=== PATIENT | male | born 1960 | race Caucasian/White ===

== ENCOUNTER 2023-10-17 01:27 | Inpatient (IN) | payer BC, SELFPAY ==
[2023-10-16 23:09] VITALS: BP 153/75
[2023-10-16 23:27] VITALS: BP 194/93
[2023-10-16 23:30] VITALS: BP 183/93
[2023-10-16 23:33] LABS: % Basophils 0.7 % (0-2); % Immature Granulocytes 0.8 % (0-0.5); % Lymphocytes 29.3 % (20.5-51.1); % Neutrophils 55.2 % (42.2-75.2); Absolute Basophils 0.1 10^3/uL (0-0.2); Absolute Eosinophils 0.2 10^3/uL (0-0.7); Absolute Immature Granulocytes 0.1 10^3/uL (0-0.05); Absolute Lymphocytes 3.5 10^3/uL (1.2-3.4); Absolute Monocytes 1.4 10^3/uL (0.1-0.6); Absolute Neutrophils 6.5 10^3/uL (1.4-6.5); Hematocrit 47.5 % (39.0-52.0); Hemoglobin 16.7 g/dL (13.0-18.0); Mean Corp Hgb Conc. 35.2 g/dL (33.0-37.0); Mean Corpuscular Hgb 32.3 pg (27.0-31.0); Mean Corpuscular Volume 91.9 fL (80.0-94.0); Mean Platelet Volume 9.4 fL (7.4-10.4); Nucleated Red Blood Cells % 0 % (-); Platelet Count 281 10^3/uL (130-400); Red Blood Cell Count 5.17 10^6/uL (4.70-6.10); Red Cell Dist. Width 12.5 % (11.5-14.5); White Blood Cell Count 11.8 10^3/uL (4.8-10.8)
--- NOTE | 2023-10-16 23:33 | ED.GENMED ---
History of Present Illness
General
Chief Complaint: Change Level of Consciousness
Source: family and ambulance crew
Time Seen by Provider: 10/16/23 23:09
History of Present Illness
History of Present Illness:
63-year-old male brought to the emergency room ambulance after becoming unresponsive at a [facility]. Patient had been consuming alcohol at the libertarian but at 9 PM he and his conversed and she felt like he seemed mildly intoxicated but not in a
concerning way. An hour later was brought to her attention that the patient had become essentially unresponsive. He had become rapidly confused, unsteady on his feet. He did have a mild fall reportedly and has an abrasion to the nose. When
paramedics arrived they found the patient sitting in the chair and he was completely unresponsive to stimulus. His Accu-Chek was normal. Patient has a history of coronary artery disease for which she had 5 vessel bypass at [facility]. He
also had right lower extremity arterial stent. However patient takes no medications.
Phy Exam
Physical Exam
Physical Exam:
General: Obtunded
Vitals: Mildly hypothermic on rectal temperature
Head: Abrasion to the bridge of the nose
Eyes: Pupils equal, EOMI
Throat: Airway intact, no exudates
Neck: Trachea midline
Chest: Sternotomy scar noted
Lungs: Clear and equal b/l
Heart: Regular rate, no murmurs
Abd: Soft, Nontender, No pulsatile mass
Neuro: Patient does not localize to painful stimulus. He intermittently appears to gag but aside from that makes no involuntary movements. He does not posture.
Skin: Warm, dry, no rash
Extremities: pulses equal b/l, no edema
Course
Orders/Labs/Results
Orders:
Orders
10/16/23 23:17
Alcohol Urgent
B-Hydroxybutyrate Urgent
Comment: ADD ON
Complete Blood Count/With Diff Urgent
Comprehensive Metabolic Panel Urgent
Triglycerides Urgent
Comment: ADDED
10/16/23 23:23
CR Chest Portable - 1 View Stat
Comment:
Reason For Exam: post intubation
Reason Study Needs to be Portable: Patient Unstable
10/16/23 23:29
Propofol 1,000,000 Mcg/100 ml [Diprivan] 1,000,000 mcg in 100 ml .ROUTE .STK-MED
10/16/23 23:30
0.9% Sodium Chloride 500 ml [Nss] 500 ml IV BOLUS
FentaNYL 1,000 MCG/100 ML [Sublimaze] 1,000 mcg in 100 ml IV NOW
Indication:: Light Sedation
Begin Infusion:: Now
Goal:: pain score </= 1, CPOT 0-2
Maximum dose in mcg/hr:: 300
Initial Dose in mcg/hr:: 100.0
Titration Instructions:: Titrate every 30 minutes if patient exhibits signs of pain or discomfort
Titration Instructions:: (pain score >/= 2, CPOT >/= 3).
Titration Instructions:: Administer bolus dose and increase infusion by 25 mcg/hr.
Taper Instructions:: If pain score at goal for 4 consecutive hours (pain score </= 1, CPOT 0-2)
Taper Instructions:: decrease infusion by 50 mcg/hr every 2 hours.
Taper Instructions:: When dose </= 50 mcg/hr may turn infusion off and consider PRN
Taper Instructions:: intermittent bolus doses only.
Over-sedation Instructions:: If CPOT 0-2 (goal) and RASS -3 to -5 (below goal) decrease sedative by 50%
Over-sedation Instructions:: first. If pain score remains at goal and RASS remains below goal in 1 hour,
Over-sedation Instructions:: decrease opioid infusion by 50%.
Notify provider:: immediately if pt exhibits: chest wall rigidity, hemodynamic instability,
Notify provider:: agitation/pain despite maximum dosing, pain when RASS below goal.
Additional Instructions:: Patient MUST be mechanically ventilated.
Fentanyl Citrate/Pf [Sublimaze] 100 mcg IV NOW STA
Fentanyl Citrate/Pf [Sublimaze] 50 mcg IV [id number] PRN
10/16/23 23:32
ABG [Arterial Blood Gas] Urgent
%Oxygen/Room Air: 40
10/17/23 00:00
CT Head W/o Iv Contrast Urgent
Reason For Exam: altered mental status
Propofol 1,000,000 Mcg/100 ml [Diprivan] 1,000,000 mcg in 100 ml IV NOW
Indication:: Light Sedation
Begin Infusion:: Now
Goal:: RASS 0 to -2
Maximum dose in mcg/kg/min:: 50
Initial dose based on RASS:: Yes
If RASS is:: +1 or pt hemodynamically unstable (SBP < 90mmHg), initiate at 10 mcg/kg/min
If RASS is:: +2, initiate at 20 mcg/kg/min
If RASS is:: greater than or equal to +3, initiate at 30 mcg/kg/min
Titration Instructions:: Titrate by 5-10 mcg/kg/min every 5 minutes until RASS 0 to -2 achieved.
Taper Instructions:: If RASS is at or below goal for 4 consecutive hours decrease infusion by
Taper Instructions:: 5-10 mcg/kg/min every 2 hours to off.
Over-sedation Instructions:: If CPOT 0-2 (at goal) AND RASS -3 to -5 (below goal) decrease sedative by
Over-sedation Instructions:: 50% first. If pain score remains at goal and RASS remains below goal in
Over-sedation Instructions:: 1 hour, decrease opioid infusion by 50%.
Notify provider:: immediately if patient exhibits signs/symptoms of propofol-related
Notify provider:: infusion syndrome.
Additional Instructions:: Patient MUST be mechanically ventilated and MUST receive analgesia.
Propofol [Diprivan] 50 mg IV NOW STA
10/17/23 00:01
ASA Classification Routine
10/17/23 00:18
Propofol [Diprivan] 50 mg IV NOW STA
10/17/23 00:30
Electrocardiogram (*1) Urgent
Reason for Study: Other
Other Reason for Exam: CIMS
10/17/23 00:31
EKG- Treatment ONCE
10/17/23 00:43
Urine Drug Abuse Screen Urgent
Date Specimen was Collected: 10/17/23
Time Specimen was Collected: 00:42
10/17/23 00:54
Add On- LAB Urgent
Tests Added?: beta hydroxybuterate
10/17/23 00:56
Admit/Transfer Patient As Directed
Co-Sign Provider:
Level of Care: Inpatient admission
Assign to:: ICU
Physician / Group: Matt
Diagnosis: Acute TME, Hypothermia, Anion Gap Metabolic Acidosis
Reason for Hospitalization: Acute TME, Hypothermia, Anion Gap Metabolic Acidosis
Expected length of stay greater than two midnights?: Yes
ELOS- Estimated Length of Stay in days: 3
I certify the patient meets the requirements for IP care: Yes
PRN Pain Medication Management As Directed
May give lesser potent ordered pain med per pt: Yes
preference::
Protocol:: Medication orders for pain may be administered in a
manner that supports deferring to patient preference
when the pt is:
- Requesting an ordered lesser potent pain medication.
Least to most potent pain medications are defined
as: acetaminophen < NSAID < tramadol < opioids
(morphine, oxycodone, hydromorphone).
- Requesting a lesser dose of the same medication IF
ORDERED.
- Requesting a less intrusive route of administration
if both routes are prescribed by the provider (PO <
IV).
10/17/23 00:57
Code Status As Directed
Resuscitation Status: Full Code
10/17/23 01:02
Thiamine Injection 100 mg IV NOW STA
10/17/23 01:17
Propofol 1,000,000 Mcg/100 ml [Diprivan] 1,000,000 mcg in 100 ml IV NOW
Indication:: Light Sedation
Begin Infusion:: Now
Goal:: RASS 0 to -2
Maximum dose in mcg/kg/min:: 50
Initial dose based on RASS:: Yes
If RASS is:: +1 or pt hemodynamically unstable (SBP < 90mmHg), initiate at 10 mcg/kg/min
If RASS is:: +2, initiate at 20 mcg/kg/min
If RASS is:: greater than or equal to +3, initiate at 30 mcg/kg/min
Titration Instructions:: Titrate by 5-10 mcg/kg/min every 5 minutes until RASS 0 to -2 achieved.
Taper Instructions:: If RASS is at or below goal for 4 consecutive hours decrease infusion by
Taper Instructions:: 5-10 mcg/kg/min every 2 hours to off.
Over-sedation Instructions:: If CPOT 0-2 (at goal) AND RASS -3 to -5 (below goal) decrease sedative by
Over-sedation Instructions:: 50% first. If pain score remains at goal and RASS remains below goal in
Over-sedation Instructions:: 1 hour, decrease opioid infusion by 50%.
Notify provider:: immediately if patient exhibits signs/symptoms of propofol-related
Notify provider:: infusion syndrome.
Additional Instructions:: Patient MUST be mechanically ventilated and MUST receive analgesia.
10/17/23 01:18
Propofol [Diprivan] 50 mg IV NOW STA
10/17/23 02:05
Troponin I Q6H
0.9% Sodium Chloride [Nss (Preservative Free)] See Protocol IV PRN PRN
Dextrose 5%/0.9%Sodchl 1000 ml [D5/0.9% Sodium Chloride] 1,000 ml IV 125 mls/hr
FOLic ACID [Folvite] 1 mg 0.9% Sodium Chloride 50 ml [Nss] 50 ml IV DAILYPRN
FentaNYL 1,000 MCG/100 ML [Sublimaze] 1,000 mcg in 100 ml IV PER PROTOCOL
Indication:: Light Sedation
Begin Infusion:: Other
Begin infusion when:: patient requires 3 or more bolus doses in 2 consecutive hours
Goal:: pain score </= 1, CPOT 0-2, RASS 0 to -2
Maximum dose in mcg/hr:: 300
Continue currently infusing dose and titrate:: Yes
Titration Instructions:: Titrate every 30 minutes if patient exhibits signs of pain or discomfort
Titration Instructions:: (pain score >/= 2, CPOT>/= 3).
Titration Instructions:: Administer bolus dose and increase infusion by 25 mcg/hr.
Taper Instructions:: If pain score at goal for 4 consecutive hours (pain score </= 1, CPOT 0-2)
Taper Instructions:: decrease infusion by 50 mcg/hr every 2 hours.
Taper Instructions:: When dose </= 50 mcg/hr may turn infusion off and consider PRN
Taper Instructions:: intermittent bolus doses only.
Over-sedation Instructions:: If CPOT 0-2 (goal) and RASS -3 to -5 (below goal) decrease sedative by 50%
Over-sedation Instructions:: first. If pain score remains at goal and RASS remains below goal in 1 hour,
Over-sedation Instructions:: decrease opioid infusion by 50%.
Notify provider:: immediately if pt exhibits: chest wall rigidity, hemodynamic instability,
Notify provider:: agitation/pain despite maximum dosing, pain when RASS -3 to -5 (below goal)
Additional Instructions:: When starting infusion, administer bolus dose per PRN order first.
Additional Instructions:: Patient MUST be mechanically ventilated.
Fentanyl Citrate/Pf [Sublimaze] 50 mcg IV [id number] PRN
Lorazepam [Ativan] 1 mg IV Q1HPRN PRN
Lorazepam [Ativan] 1 mg PO Q2HPRN PRN
Lorazepam [Ativan] 2 mg IV Q1HPRN PRN
Propofol 1,000,000 Mcg/100 ml [Diprivan] 1,000,000 mcg in 100 ml IV PER PROTOCOL
Indication:: Light Sedation
Begin Infusion:: Now
Goal:: RASS 0 to -2
Maximum dose in mcg/kg/min:: 50
Continue currently infusion dose and titrate:: Yes
Titration Instructions:: Titrate by 5-10 mcg/kg/min every 5 minutes until RASS 0 to -2 achieved.
Taper Instructions:: If RASS is at or below goal for 4 consecutive hours decrease infusion by
Taper Instructions:: 5-10 mcg/kg/min every 2 hours to off.
Over-sedation Instructions:: If CPOT 0-2 (at goal) AND RASS -3 to -5 (below goal) decrease sedative by
Over-sedation Instructions:: 50% first. If pain score remains at goal and RASS remains below goal in
Over-sedation Instructions:: 1 hour, decrease opioid infusion by 50%.
Notify provider:: immediately if patient exhibits signs/symptoms of propofol-related
Notify provider:: infusion syndrome.
Additional Instructions:: Patient MUST be mechanically ventilated and MUST recieve analgesia
10/17/23 02:05
Case Management Consult Once
Case Management Consult: Other
Comment: Substance abuse counseling
Consult Notification Routine
Specialty to Notify: Management Information Systems Director
DIETARY CONSULT Routine
Reason for Consult: Nutrition support, possible refeeding guidelines
Management Information Systems Director Consult Routine
Consulting Provider: Rajat Posada
Was physician already notified: No
Reason for consult: Acute TME, Hypothermia, Anion Gap Metabolic Acidosis
TSH Reflex To Free T4 Routine
Triglycerides Routine
Comment: baseline levels with propofol infusion
Urinalysis Routine
Activity As Directed
Activity Level: Bedrest
Maria Luisa Hugger As Directed
Patient's goal temperature:: 97 F
Additional Instructions:: Temperature and skin assessment per unit protocol
EKG with chest pain [ECG as needed] As Directed
ECG as needed for:: Chest Pain
I/O [Intake/ Output] As Directed
Frequency: Per unit guidelines
MSAS SCORE As Directed
MSAS Score 0-4: Repeat MSAS every 2 hours until 0-4 for three consecutive assessments, then every 4 hours x 48
hours.
MSAS Score 5-7: For MILD withdrawl symptoms. Repeat MSAS and RASS every 2 hours
MSAS Score 8-11: For MODERATE withdrawal symptoms. Repeat MSAS and RASS every 1 hour. Consider ICU or IMU
level of care.
MSAS Score > 11: For SEVERE withdrawal symptoms. Repeat MSAS and RASS every 1 hour. Notify provider, consider
ICU level of care.
MSAS Additional Instructions: If no improvement or no decrease in score from severe to moderate within 12
hours, consult psychiatry
MSAS Notify Provider: Notify provider if patient requires more than 10 mg of Lorazepam in eight hour period.
Neurological Checks As Directed
Frequency: q4h
Pneumatic Compression Sleeves As Directed
Type: Knee high
Vital Signs As Directed
Frequency: Per unit guidelines
Weight As Directed
Frequency: Daily
DX Deep Vein Thrombosis Video Routine
10/17/23 06:00
EKG [Electrocardiogram (*1)] IN AM
Reason for Study: Chest Pain
NPO
Allow oral meds: Yes
Allow clear liquids: Sips of Clears
ABG [Arterial Blood Gas] IN AM
%Oxygen/Room Air: Vent
Basic Metabolic Panel IN AM
Complete Blood Count/No Diff IN AM
LFT [Gtxov-Qjxk-Roqhyrs] IN AM
Magnesium IN AM
Phosphorus IN AM
10/17/23 08:00
Aspirin Chewable [Low Strength Aspirin] 81 mg PO DAILY
FOLic ACID [Folvite] 1 mg PO DAILY
Pantoprazole [Protonix IV] 40 mg IV DAILY
Thiamine Injection 200 mg IV Q8
10/17/23 08:05
Troponin I Q6H
10/17/23 14:05
Troponin I Q6H
10/18/23 08:00
Polyethylene Glycol Powder [Miralax] 17 grams TUBE DAILY
10/20/23 06:00
Triglycerides Q3D
Comment: every 72 hours while patient is on propofol
10/20/23 08:00
Thiamine HCl [Vitamin B1] 100 mg PO BID
10/23/23 06:00
Triglycerides Q3D
Comment: every 72 hours while patient is on propofol
10/26/23 06:00
Triglycerides Q3D
Comment: every 72 hours while patient is on propofol
Abnormal Lab Results
10/16/23 10/17/23
23:17 00:32
WBC 11.8 H 10^3/uL
(4.8-10.8)
MCH 32.3 H pg
(27.0-31.0)
Abs Immat Gran (auto) 0.1 H 10^3/uL
(0-0.05)
Absolute Lymphs (auto) 3.5 H 10^3/uL
(1.2-3.4)
Absolute Monos (auto) 1.4 H 10^3/uL
(0.1-0.6)
Immature Gran % 0.8 H %
(0-0.5)
Monocytes % 12.0 H %
(1.7-9.3)
pH 7.21 L
(7.35-7.45)
pCO2 50 H mmHg
(35-48)
HCO3 20.0 L mmol/L
(21-28)
Carbon Dioxide 19 L mmol/L
(22-30)
Triglycerides 192 H mg/dl
(10-149)
10/16/23 23:17
10/16/23 23:17
Vital Signs
Initial and Last Documented VS:
Initial Vital Signs
Pulse Resp BP Pulse Ox
80 18 153/75 98
10/16/23 23:09 10/16/23 23:09 10/16/23 23:09 10/16/23 23:09
Last Documented Vital Signs
Temp Pulse Resp BP Pulse Ox
97.9 F 104 15 122/69 100
10/17/23 01:14 10/17/23 02:15 10/17/23 02:15 10/17/23 01:45 10/17/23 01:50
MDM/Problems Addressed
Differential Diagnosis Includes:
Spontaneous intraparenchymal hemorrhage, subdural, alcohol intoxication,
MDM/Problems Addressed:
Patient brought to the emergency by ambulance and had obtunded state. He does not respond to noxious stimuli. At time patient appears to gag somewhat as if he might vomit. High level of concern for his ability to protect his airway. Decision
made to perform rapid sequence intubation for airway protection. Patient was intubated without complication. CT performed shows no acute intracranial abnormality. Vital signs showed the patient was somewhat hypothermic with a rectal temperature
of 96.1. CBC unremarkable. Chemistry show a gap metabolic acidosis. ABG shows a combined metabolic and respiratory acidosis. Patient given IV fluid. Patient did bite the ET tube and have some bucking on the vent. He was sedated with propofol
fentanyl. However he was not reaching for the ET tube or showing evidence that he would be anywhere near a candidate for extubation. Discussed patient's presentation with his and son.
Chronic conditions affecting care: CAD
*Radiology
Radiology exam reviewed: preliminary read by ED provider (Portable chest x-ray reviewed by me, ET tube in adequate position, no infiltrates noted)
*Pulse Oximetry
Patient hypoxic: no
*EKG
Interpreted by ED Provider?: Yes
Interpretation: normal
Heart Rate: 84
Rate: normal
Rhythm: sinus
Garita: normal axis
Interval: normal interval
QRS Pattern: normal QRS
Ischemia: non-specific ST changes
*Lead Radiation Therapist Interpretation
Rate: normal
Interpretation: normal
Rhythm: sinus
*Critical Care Note
Total Time (30-74mins, 75-104mins- exclusive of procedures): 40 min
comment:
Critical care statement: A total of 40 minutes of critical care time was provided for this patient. This includes management of unstable vital signs, evaluation of the patient at bedside, reviewing the patient's pertinent medical records, discussion
with consultants, review of old EKGs and review of pertinent medical records. This time with separate from time utilized to perform the aforementioned documented procedures
ED Attending Note
-
Portions of this chart may have been created with voice recognition software.� Occasional wrong word or��sound alike� substitutions may have occurred due to the inherent limitations of voice recognition software.
Discharge Plan
Departure
Patient Disposition: Admit
Date of Disposition: 10/17/23
Time of Disposition: 00:29
Admit to: ICU
Presentation/result/management discussed w/ accepting MD/DO: Hospitalist
Condition: Serious
Discharge Problem:
Alcohol intoxication, Respiratory failure
Interventions
Interventions:
*Risk Screen - Suicide Last Done: 10/16/23 23:12
*General Assessment Last Done: 10/16/23 23:12
*Neglect/Abuse Screening Last Done: 10/16/23 23:12
ED- Fall Risk Assessment Last Done: 10/17/23 02:20
*ED COVID-19 Vaccine History Last Done: 10/16/23 23:12
*Nursing Disposition Last Done: 10/17/23 02:20
ED- Cardiac Assessment Last Done: 10/16/23 23:15
ED- Neurological Assessment Last Done: 10/16/23 23:15
ED- Pulmonary Assessment Last Done: 10/16/23 23:30
Discharge Date and Time
Discharge Date/Time: 10/17/23 02:21
[2023-10-16] MEDS: NSS 500 IV (23:36)
[2023-10-16] MEDS: SUBLIMAZE 100 MCG IV (23:38)
[2023-10-16] MEDS: SUBLIMAZE 100 IV (23:39)
[2023-10-16 23:41] LABS: ALT (SGPT) 40 U/L (0-50); AST (SGOT) 29 U/L (17-59); Albumin 4.8 g/dl (3.5-5.0); Alkaline Phosphatase 75 U/L (38-126); Blood Urea Nitrogen 15 mg/dl (9-20); Calcium 9.6 mg/dl (8.4-10.2); Carbon Dioxide 19 mmol/L (22-30); Chloride 104 mmol/L (98-107); Glucose 97 mg/dl (70-99); Potassium 4.5 mmol/L (3.5-5.1); Sodium 145 mmol/L (135-145); Total Bilirubin 0.4 mg/dl (0.2-1.3); Total Protein 7.2 g/dl (6.3-8.2); eGFR > 60.00
[2023-10-16 23:45] VITALS: BP 194/109
[2023-10-16 23:52] LABS: Alcohol 350 mg/dl
[2023-10-17] VITALS (116 sets, daily range): BP systolic 50–223; BP diastolic 34–150
[2023-10-17] MEDS: DIPRIVAN 100 IV ×3 (00:16→07:05)
[2023-10-17 00:38] LABS: B.E. -8.3 mmol/L; O2 Saturation % 96.4 % (94-98); PCO2 50 mmHg (35-48); PO2 92 mmHg (83-108); pH 7.21 (7.35-7.45)
--- NOTE | 2023-10-17 00:45 | EDRN ---
2320 30 of etomidate given
232 150 of succinylcholine given
2322 pt intubated 8.0 ett 25 @ the lip by Dr Driver
232 equal breath sounds, positive color change
[2023-10-17 00:48] LABS: Triglycerides 192 mg/dl (10-149)
[2023-10-17 00:59] LABS: Amphetamines Negative (Negative); Barbiturates Negative (Negative); Benzodiazepines Negative (Negative); Buprenorphine Negative (Negative); Cocaine Negative (Negative); Marijuana Negative (Negative); Methadone Negative (Negative); Methamphetamines Negative (Negative); Opiates Negative (Negative); Phencyclidine Negative (Negative); Tricyclic Antidepressants Negative (Negative)
--- NOTE | 2023-10-17 01:03 | HPS.HSE ---
Family Physician
-
Family Physician: Yaniv Pena
Chief Complaint
-
Unresponsive
History of Present Illness
Patient is a 63y M with PMH significant for ASCVD who presents to ED for evaluation of unresponsiveness. History obtained from family at the bedside as patient is currently intubated / sedated.
states that they were at a alliance party this evening. Patient drank several beers and then went outside where he had 'shots' of 120 proof bourbon with the other gentlemen at the alliance party. He came back inside some time later and appeared poorly
responsive. He was starting into space and slumped up against the wall. He was not responding to spoken questions / commands. Patient 'slid' down the wall but suffered no significant injury according the who witnessed this. He does have a
small abrasion on the bridge of his nose which apparently occurred at that time.
He was incontinent of urine.
EMS was ultimately called and patient was transported to the ED for further evaluation.
In the ED, he remained essentially unresponsive and the decision was made to intubate him for airway protection.
At the time of my examination patient is sedated and intubated on the ventilator.
Family states that he typically drinks on the weekends - occasionally up to 6 beers in a given day. He does not drink during the week. He has had occasional hard liquor in the past with no such incidents.
He does not use any drugs.
He takes several vitamins / supplements which they are unable to list at this time. His only standard daily medication is ASA 81mg daily.
He has not been ill recently and felt well this evening prior to the alliance party.
He ate some lobster roll during the alliance party. He has no history of allergy or intolerance of seafood / shellfish.
Medical History
Past Medical History
Past Medical History: Reports Other
Additional Past Medical History:
ASCVD
Skin Cancer
Past Surgical History: Reports Other
Additional Past Surgical History:
CABG x 5
RLE Angio / Stent
Hernia Repair
Social History
Tobacco: Former Smoker (Quit smoking at age 29. Approx 10 pack years total use.)
Alcohol: Occasional (Weekend drinker.)
Drug: None
Personal:
Living: With Family
Family History
Family History: Other (Father: Cirrhosis Mother: Longevity Heart disease in males on his mother's side.)
Allergies / Home Medications
Allergies reflects when Allergies were last updated in [employer].
Home Medications with original date entered in [employer]
Allergy/Medication List:
Allergies
Allergy/AdvReac Type Severity Reaction Status Date / Time
No Allergy Information Allergy Verified 10/16/23 23:33
Available
Home Medications
aspirin 81 mg chewable tablet 81 mg PO DAILY 10/17/23
Review of Systems
-
Unable to obtain full review of systems at this time due to: Patient Intubation
Physical Exam
Vital Signs
Vital Signs
Temp Pulse Resp BP Pulse Ox
96.1 F L 75 15 125/58 99
10/16/23 23:49 10/17/23 01:00 10/17/23 01:00 10/17/23 01:00 10/17/23 01:00
Physical Exam
General: Other (63y M presently intbated and sedated. Shivering.)
HEENT: Moist mucous membranes and Other (ETT in place.)
Respiratory: Clear; No Wheezes, Rales or Rhonchi
Cardiac: S1/S2 and Regular Rhythm; No Murmur
GI: Soft, Non Tender, Non Distended and Normal Bowel Sounds
Genito-urinary: Other (Jones in place draining very light yellow urine.)
Musculoskeletal: No Clubbing, No Cyanosis and No Edema
Neuro: Sedated
Laboratory Results
-
10/16/23 23:17
10/16/23 23:17
Laboratory Results
pH 7.21 (7.35-7.45) L 10/17/23 00:32
pCO2 50 mmHg (35-48) H 10/17/23 00:32
pO2 92 mmHg (83-108) 10/17/23 00:32
HCO3 20.0 mmol/L (21-28) L 10/17/23 00:32
Total Bilirubin 0.4 mg/dl (0.2-1.3) 10/16/23 23:17
AST 29 U/L (17-59) 10/16/23 23:17
ALT 40 U/L (0-50) 10/16/23 23:17
Alkaline Phosphatase 75 U/L (38-126) 10/16/23 23:17
Impression/Plan
-
A/P: Patient is a 63y M with PMH significant for ASCVD who presents to ED for evaluation of unresponsiveness.
Acute Alcohol Intoxication
Acute TME secondary to the above
Intubated for Airway Protection
Anion Gap Metabolic Acidosis
- Admit to ICU for further evaluation and treatment.
- Maintain sedation and vent support overnight.
- Scoop Operator evaluation.
- Will hopefully be able to wean sedation and consider weaning trial / extubation in the AM.
- EtOH level = 350 on arrival.
- Anion gap acidosis likely due to alcoholic ketoacidosis. B-OH pending.
- Thiamine replacement now and ongoing.
- IVFs with supplemental dextrose. Follow for improvement in anion gap / labs / lytes.
- Presentation is somewhat unusual - despite EtOH intake.
- CT head done in the ED was unremarkable.
- If mental status fails to improve with time / sobriety - consider further evaluation.
Hypothermia
- Likely secondary to acute intoxication as noted above.
- Check TFTs.
- Supportive care with Maria Luisa Hugger / blankets / etc.
- Follow for improvement.
ASCVD
- No recent issues with chest pain, dyspnea, etc.
- Continue ASA daily.
- EKG without acute ischemic changes. Follow serial trop for any changes.
DVT Prophylaxis: SCDs
Code Status: Full
[2023-10-17 01:52] LABS: B-Hydroxybutyrate 0.27 mmol/L (0.02-0.27)
[2023-10-17] MEDS: D5/0.9% SODIUM CHLORIDE 1000 IV ×2 (02:31→10:17)
[2023-10-17] MEDS: NSS 1000 IV ×2 (03:30→05:42)
[2023-10-17] MEDS: ZOSYN 50 IV ×2 (05:02→09:31)
[2023-10-17] MEDS: THIAMINE INJECTION 100 MG IV (05:03)
[2023-10-17 05:11] LABS: Urine Albumin Trace (Neg - Trace); Urine Bilirubin Negative (Negative); Urine Character Clear (Clear); Urine Color Yellow; Urine Glucose Negative (Negative); Urine Ketone Trace (Negative); Urine Leukocyte Negative (Negative); Urine Nitrite Negative (Negative); Urine Occult Blood Trace (Negative); Urine Specific Gravity 1.025 (<1.030); Urine Urobilinogen Negative (Neg - 1+)
[2023-10-17 05:27] LABS: COVID-19 Antigen Negative (Negative)
[2023-10-17 05:31] LABS: B.E. -6.6 mmol/L; HCO3 18.5 mmol/L (21-28); O2 Saturation % 98.3 % (94-98); PCO2 35 mmHg (35-48); PO2 103 mmHg (83-108); pH 7.33 (7.35-7.45)
[2023-10-17] MEDS: LEVOPHED 250 IV (05:43)
[2023-10-17 06:51] LABS: Hematocrit 40.6 % (39.0-52.0); Hemoglobin 14.4 g/dL (13.0-18.0); Mean Corp Hgb Conc. 35.5 g/dL (33.0-37.0); Mean Corpuscular Hgb 33.8 pg (27.0-31.0); Mean Corpuscular Volume 95.3 fL (80.0-94.0); Mean Platelet Volume 9.6 fL (7.4-10.4); Platelet Count 247 10^3/uL (130-400); Red Blood Cell Count 4.26 10^6/uL (4.70-6.10); Red Cell Dist. Width 12.8 % (11.5-14.5); White Blood Cell Count 11.2 10^3/uL (4.8-10.8)
--- NOTE | 2023-10-17 07:00 | PTCARENOTE ---
Received patient from shift supervisor film processing. PAtient is intubated/sedated. Fentanyl, levo, propfol gtts all verified during handoff. RASS -2. Patient has number 8 ETT at 22lip/center of mouth. AC settings 18/500/40%/5 with oxygen saturation at 97%. No
secretions from ETT. Lungs slightly coarse. Patient is sinus rhythm on monitor. Some trace edema in lower extremities. Belly is obese, firm, rounded. Patient has Jones catheter, draining clear/yellow urine. abrasion noted on bridge of nose,
otherwise skin is intact. SCDS are on for DVT prophylaxis. Will review orders. plan to wean.
[2023-10-17 07:02] LABS: Urine Amorphous Seen; Urine Mucus Many
[2023-10-17 07:02] LABS: INR 1.07; Lactic Acid 2.8 mmol/L (0.7-2.0); PT 13.7 Sec (11.4-14.6)
[2023-10-17 07:03] LABS: APTT 39.8 Sec (23.4-35.0)
[2023-10-17 07:04] LABS: Urine Bacteria Moderate (Negative)
[2023-10-17] MEDS: NSS IV ×3 (07:16)
[2023-10-17] MEDS: LOW STRENGTH ASPIRIN PO (07:16)
[2023-10-17] MEDS: FOLVITE PO (07:16)
--- NOTE | 2023-10-17 07:19 | W.PN.HOSP.TC ---
Today's Communication/Plan
-
Vent mgmt/breathing/trials/potential extubation as per ICU
switch empiric abx zosyn to unasyn for now, possible aspiration
monitor for signs of ongoing/worsening infection
Assessment / Plan
Assessment / Plan
Physical Exam
General: no acute distress
HEENT: Moist mucous membranes and ETT in place
Respiratory: Clear; No Wheezes, Rales or Rhonchi
Cardiac: S1/S2 and Regular Rhythm; No Murmur
GI: Soft, Non Tender, Non Distended and Normal Bowel Sounds
Genito-urinary: Jones
Musculoskeletal: No Clubbing, No Cyanosis and No Edema
Neuro: Awake Alert able to follow simple commands
A/P: Patient is a 63y M with PMH significant for ASCVD who presents to ED for evaluation of unresponsiveness.
Acute Alcohol Intoxication
Acute TME secondary to the above
Intubated for Airway Protection
Anion Gap Metabolic Acidosis
ICU admit
- De Icer Finisher evaluation.
- EtOH level = 350 on arrival.
- Anion gap acidosis likely due to alcoholic ketoacidosis vs dehydration lactic acidosis mild. B-OH wnl
- Thiamine
- IVFs with supplemental dextrose. Follow for improvement in anion gap / labs / lytes.
-CT head done in the ED was unremarkable.
- Mental status since improved
-briefly on low dose pressor since weaned off (suspect d/t combination anesthesia and alcohol overdose)
-Breathing trials/potential extubation as per ICU
Hypothermia
- Likely secondary to acute intoxication as noted above.
- TFTs wnl
- Supportive care with Maria Luisa Hugger / blankets / etc.
- resolved
Mild Leukocytosis Hypothermia, later low grade fever 100.1, Hx Unresponsiveness required intubation
concerning for possible aspiration
CXR appreciated no acute abn's
started empirically on zosyn, de-escalated to unasyn
cont empiric abx for now, consider dc in 24 hours and monitoring off if no significant signs ongoing infection
ASCVD
- No recent issues with chest pain, dyspnea, etc.
- Continue ASA daily when able to tolerate oral intake
- EKG without acute ischemic changes. Follow serial trop for any changes.
DVT Prophylaxis: SCDs
Code Status: Full
Discussed with patient, patient's Brother Torsten, and patient's son Gorge at bedside
Total Critical Care Time__50___ minutes. I was immediately available to the patient and staff. I personally examined, reviewed labs, diagnostic images/reports, interpretations, treatment plans, discussed patient care with other providers,
patient, and family, entered orders as appropriate and documented the medical record.
Anticipated Discharge: > 48 hours
Subjective/Interval History
-
Date of Service: October 17, 2023
Intubated, no acute distress. Awake alert following simple commands.
Objective Data
-
Labs:
Laboratory Results
10/16/23 10/17/23 10/17/23
23:17 00:32 05:18
WBC 11.8 H
Hgb 16.7
Hct 47.5
Plt Count 281
PT
INR
APTT
HCO3 20.0 L 18.5 L
Sodium 145
Potassium 4.5
Chloride 104
Carbon Dioxide 19 L
BUN 15
Creatinine 0.9
Glucose 97
Calcium 9.6
Total Bilirubin 0.4
AST 29
ALT 40
Alkaline Phosphatase 75
10/17/23
06:34
WBC 11.2 H
Hgb 14.4
Hct 40.6
Plt Count 247
PT 13.7
INR 1.07
APTT 39.8 H
HCO3
Sodium Pending
Potassium Pending
Chloride Pending
Carbon Dioxide Pending
BUN Pending
Creatinine Pending
Glucose Pending
Calcium Pending
Total Bilirubin Pending
AST Pending
ALT Pending
Alkaline Phosphatase Pending
Vital Signs:
Vital Signs
Temp Pulse Resp BP Pulse Ox
100.1 F 79 18 115/75 98
10/17/23 07:00 10/17/23 06:55 10/17/23 06:55 10/17/23 06:55 10/17/23 06:55
I&O
10/16/23 10/17/23 10/18/23
06:59 06:59 06:59
Intake Total 467.7 / 467.7
Output Total 550 / 550
Balance -82.3 / -82.3
[2023-10-17 07:22] LABS: Triglycerides 303 mg/dl (10-149)
[2023-10-17] MEDS: NSS (PRESERVATIVE FREE) 10 ML IV (07:23)
[2023-10-17] MEDS: THIAMINE INJECTION 200 MG IV ×3 (07:23→23:34)
[2023-10-17] MEDS: PROTONIX IV 40 MG IV (07:23)
[2023-10-17 07:26] LABS: ALT (SGPT) 33 U/L (0-50); AST (SGOT) 32 U/L (17-59); Albumin 3.4 g/dl (3.5-5.0); Alkaline Phosphatase 69 U/L (38-126); Blood Urea Nitrogen 12 mg/dl (9-20); Carbon Dioxide 19 mmol/L (22-30); Chloride 110 mmol/L (98-107); Direct Bilirubin 0.1 mg/dl (0.0-0.4); Glucose 169 mg/dl (70-99); Magnesium 1.8 mg/dl (1.6-2.3); Phosphorus 3.3 mg/dl (2.5-4.5); Potassium 4.5 mmol/L (3.5-5.1); Sodium 145 mmol/L (135-145); Total Bilirubin 0.2 mg/dl (0.2-1.3); Total Protein 5.6 g/dl (6.3-8.2); eGFR > 60.00
[2023-10-17 07:31] LABS: Procalcitonin < 0.05 ng/ml (0.0-0.25)
[2023-10-17 07:32] LABS: Troponin I 0.017 ng/ml
--- NOTE | 2023-10-17 07:50 | W.PN.UPDATE ---
Addendum entered and electronically signed by Lester Gutierrez DO 10/17/23 08:03:
Note entered in error. Wrong chart. Please remove.
Original Note:
Update Note
Progress Note Update
Patient deteriorated throughout the night.
Developed significant increase in work of breathing and dyspnea. Was diaphoretic and in respiratory distress.
CXR showed R pneumonia and evidence of pulmonary edema.
He was transferred to the ICU and continued to deteriorate requiring intubation and sedation.
Patient suffered cardiac arrest at 4:50 AM. Code was called and CPR, ACLS protocols were carried out.
Despite extensive resuscitation efforts lasting nearly an hour, patient failed to have meaningful return of perfusion / circulation. He did however have a weak, persistent pulse.
Discussion held with the family throughout this process (mother and son).
They agreed to no additional CPR / resuscitation efforts. Additional family members were called to the patient's bedside.
Multiple vasoactive agents were discontinued after discussion with the family as patient remained hypotensive and was clearly not perfusing despite these interventions.
At 7:48 AM patient was noted to be pulseless.
He had no heart sounds or spontaneous respirations. No pulse or blood pressure was detected.
Patient was pronounced at 7:48 AM. Family was present at the bedside. Nursing notified [facility].
[2023-10-17 07:51] LABS: TSH Reflex To Free T4 1.86 uIU/ml (0.47-4.68)
--- NOTE | 2023-10-17 07:56 | PTCARENOTE ---
Late note due to pt care. Received pt from ED RN, pt is intubated and sedated. bare hugger on, temp sensing Jones in place. Pt SBP declining, 1Liter bolus given with only a short lived improvement, Levo was started approx 545am for SBP 50s. Pt is a
difficult stick, Midline placed, labs sent. was updated roughly 3am. Pt has abrasion on the bridge of his nose, otherwise skin is intact. Restraints per order. q2 hour turns.
[2023-10-17] MEDS: SUBLIMAZE 100 IV (08:30)
[2023-10-17] MEDS: TYLENOL/FEVERALL 650 MG RECTAL (08:58)
--- NOTE | 2023-10-17 09:12 | CON.INTV ---
Consultation
Consultation Request
Date/Time Consultation Requested: 10/17/2023204
Date/Time Consultation Performed: 10/17/2023857
Requesting Provider: Dr. Gutierrez
Performing Provider: Dr. Posada
Reason for Consultation: Unresponsive s/p intubation
Medical History
-
Chief Complaint: Fall/unresponsive
History of Present Illness:
63-year-old male former tobacco smoker with past medical history of CAD s/p CABG x 5, PAD s/p RLE stent, history of skin cancer and hernia s/p repair who presents with fall and subsequent unconsciousness. Patient was at a family birthday alliance party
where he was drinking beer + bourbon and then fell with abrasion to bridge of nose seen. Patient is on a baby ASA. When he arrived to the ER he was unresponsive. Per the family, he was drinking 120 proof bourbon at the alliance party, then stared into
space, slumped against the wall, slid down and fell onto his face. 911 called and he was intubated in the ER for airway protection. Patient drinks typically on the weekends up to 6 beers at a time. No history of withdrawal seizure. In the ER,
initially he was hypothermic to 96.1 �F, pulse rate 80, breathing at 18 breaths/min, BP 153/75 and saturating 98% on room air. Initial labs showed mild leukocytosis to 11.8, Hb 16.7, metabolic + respiratory acidosis with pH 7.21, pCO2 50, serum
bicarbonate level 19, lactate 2.8, glucose 97, UDS negative, alcohol level 350 and COVID antigen negative. Blood cultures were collected. CT head showed no acute intracranial normality. CXR showed low lung volumes with no evidence of pneumonia or
vascular congestion. Patient started on propofol + fentanyl, and given IVF with 0.5 L of NS 0.9%. He was admitted to the ICU for further care and gut carrier services consulted for additional management/recommendations.
This morning when I saw the patient, he was intubated on VC/CMV at 18/500/40%/5, with PIP: 25 cmH2O, VTe 505 mL and breathing at 18 breaths/min. He was easily arousable following all commands when sedation was lowered. He wants the tube out of his
throat. Able to lift head off pillow pillow. Patient's son, Gaurav, and patient's brother, Torsten, at bedside. All questions were answered. Heart rate currently 79, BP 107/72, and saturating 97%.
PMHx: Skin cancer, CAD s/p CABG x 5, PAD s/p RLE stent, hernia s/p repair, former tobacco use (quit smoking >30 years ago with 23-dmsz-haav history)
PSHx: CABG x 5, RLE angio/stent, hernia repair
Past Medical History
Past Medical History: Other (Above as per HPI)
Past Surgical History: Other (Above as per HPI)
Social History
Tobacco: Former Smoker (20-hbzp-nuuq history, quit smoking at age 29)
Alcohol: Occasional (Drinks on the weekends, sometimes heavily)
Drug: None
Personal:
Living: With Family
Family History
Family History: CAD (On the male side of maternal side of the family) and Other (Father: Cirrhosis)
Allergies / Home Medications
Allergies
Allergy/AdvReac Type Severity Reaction Status Date / Time
No Allergy Information Allergy Verified 10/16/23 23:33
Available
Home Medications
�Medication �Instructions �Recorded �Confirmed �Last Taken �Type
aspirin 81 mg chewable tablet 81 mg PO DAILY 10/17/23 10/17/23 Unknown History
Review of Systems
-
Unable to Obtain full review of systems at this time due to: Patient Intubation
Vitals / Labs / Diagnostic Testing
Vital Signs
Temp Pulse Resp BP Pulse Ox
100.1 F 94 12 129/79 96
10/17/23 07:00 10/17/23 10:01 10/17/23 10:01 10/17/23 09:50 10/17/23 10:01
Lab Data
10/17/23 06:34
10/17/23 06:34
Laboratory Results
10/17/23 10/17/23 10/17/23
00:32 05:18 06:34
PT 13.7
INR 1.07
APTT 39.8 H
pH 7.21 L 7.33 L
pCO2 50 H 35
pO2 92 103
HCO3 20.0 L 18.5 L
O2 Delivery Level
Diagnostic Testing:
Physical Exam
-
HEENT: Normocephalic, Anicteric and Other (ETT in place)
Cardiovascular: S1/S2 and Peripheral Edema (negative)
Respiratory: Wheeze (negative), Rales (negative), Rhonchi (negative), Non-Labored Respirations and Other (Mechanical breath sounds heard bilaterally)
GI: Soft, Distended (Abdominal distention), Non Tender and Normal Bowel Sounds
Neurology: Awake, Alert and Tremors (negative)
Skin: Warm and Dry
General: Respiratory Distress (negative), Comfortable, Chills (negative) and Sweats (negative)
Assessment
-
Assessment: 63-year-old male former tobacco smoker with past medical history of CAD s/p CABG x 5, PAD s/p RLE stent, history of skin cancer and hernia s/p repair who presents with fall and subsequent unconsciousness. Patient was at a family
birthday alliance party where he was drinking beer + bourbon and then fell with abrasion to bridge of nose seen. Patient is on a baby ASA. When he arrived to the ER he was unresponsive. Per the family, he was drinking 120 proof bourbon at the alliance party, then
stared into space, slumped against the wall, slid down and fell onto his face. 911 called and he was intubated in the ER for airway protection. Patient drinks typically on the weekends up to 6 beers at a time. No history of withdrawal seizure.
In the ER, initially he was hypothermic to 96.1 �F, pulse rate 80, breathing at 18 breaths/min, BP 153/75 and saturating 98% on room air. Initial labs showed mild leukocytosis to 11.8, Hb 16.7, metabolic + respiratory acidosis with pH 7.21, pCO2
50, serum bicarbonate level 19, lactate 2.8, glucose 97, UDS negative, alcohol level 350 and COVID antigen negative. Blood cultures were collected. CT head showed no acute intracranial normality. CXR showed low lung volumes with no evidence of
pneumonia or vascular congestion. Patient started on propofol + fentanyl, and given IVF with 0.5 L of NS 0.9%. He was admitted to the ICU for further care and gut carrier services consulted for additional management/recommendations.
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
Impression:
#Acute alcoholic intoxication with fall and unresponsiveness requiring intubation (in the ER on 10/16/2023)
#Acute respiratory failure with hypoxia on mechanical ventilation
#Shock: Likely distributive from sedation
#Mild hypertriglyceridemia
#Lactic acidosis
#Acute respiratory acidosis + metabolic acidosis with increased anion gap
#Leukocytosis
#Hx of CAD s/p CABG x 5
#PAD s/p RLE stent
#Former tobacco smoker (35-grwn-aoda history; quit smoking at age 29)
Plan:
- Continue with spontaneous breathing trial on PS: 5 & PEEP: 5, with plans to extubate after ABG is obtained
- In the meantime, keep peak pressure <30�35, and titrate FiO2 + PEEP to maintain SpO2 >90-94%
- Aspiration precautions
- Once extubated, bedside nursing swallow evaluation to assess if safe to start PO diet + meds
- Given concern for aspiration, Unasyn started. Continue empirically for now and would complete 5 days worth and then stop, assuming that he remains afebrile for 48 hours prior to stopping
- Trend WBC
- Follow up blood Cx X 2 (collected 10/17/2023)
- Follow up UCx
- Check sputum culture if patient able to provide decent sample
- Continue with vasopressors and wean as tolerated
- Patient was able to be weaned off of Levophed this morning
- Trend lactate level until <2mmol/L
- Keep MAP>65
- Replete electrolytes with K>4, Mg>2
- Maintain euglycemia with goal BG 140-180
- prn nebulized bronchodilators - pt not currently bronchospastic
- TSH WNL at 1.86
- Given Hx of CAD s/p CABG, check lipid panel with goal LDL<70
- Check A1C
- Thiamine, folate and MSAS with prn ativan
- Incentive spirometer once extubated
- pt currently on PPI --> no indication --> will stop this
- DVT ppx: start LMWH
Critical care statement: A total of 38 minutes of critical care time was provided for this patient today. This includes management of unstable vital signs, evaluation of the patient at bedside, reviewing the patient's pertinent medical records
including radiographs, microbiology, laboratory evaluations, and discussion with primary team, consultants, pharmacy, nutrition, physical therapy, case management, charge nurse, critical care nursing, and respiratory therapy.
Data:
CXR 10/16/2023: Endotracheal tube with tip in trachea above the nory; No pneumothorax.
CT Head 10/17/2023: No acute intracranial abnormality.
--- NOTE | 2023-10-17 10:03 | PTCARENOTE ---
Patient following all commands, brother and son at bedside, updated of plan of care and patient's condition. Started vent wean.
[2023-10-17] MEDS: UNASYN IV ×3 (11:04→22:32)
[2023-10-17 11:13] LABS: B.E. -5.9 mmol/L; HCO3 20.2 mmol/L (21-28); O2 Saturation % 98.8 % (94-98); PCO2 41 mmHg (35-48); PO2 114 mmHg (83-108)
--- NOTE | 2023-10-17 11:40 | PTCARENOTE ---
Patient now extubated, AAOx4, pleasant, calm.
--- NOTE | 2023-10-17 12:02 | RESPNOTE ---
Respiratory: Patient extubated with out incident. No stridor, no wheeze.
[2023-10-17 12:33] LABS: Lactic Acid 2.1 mmol/L (0.7-2.0)
[2023-10-17 12:45] LABS: Troponin I < 0.012 ng/ml
--- NOTE | 2023-10-17 14:16 | CM ---
Patient seen at bedside in ICU with patient son and brother also present. Patient states that he just wants to go home. Patient stated that he lives with his in a one story home. Patient PCP is Dr. Silva and he uses the [facility] in [place] on
[facility] [facility]. Patient did not have any concerns about discharge and pending PT/OT assessment, clarification of discharge needs. Patient does not anticipate any needs. CM will continue to follow for discharge planning needs.
Plan; home with VN vs SNF vs AcuteCare; pending Therapy recommendations/Medical treatment plan
--- NOTE | 2023-10-17 16:07 | PTCARENOTE ---
MSAS remains low, no signs of withdrawal. Discontinued juárez. Not trending lactic, order in for Lactic tomorrow 0600.
--- NOTE | 2023-10-17 16:32 | W.PN.UPDATE ---
Update Note
Progress Note Update
Patient doing well after extubation today. Remains off vasopressors, saturating 99% on 4 L/min and we are actively weaning down O2 flow rate. BP 144/81, pulse rate 92 and he is breathing at 14 breaths/min, and is comfortable in no acute distress.
Stable for transfer out of ICU to telemetry. Outside Sales Professional/Pulmonary service will now sign off. Thank you for allowing us to be involved in the care of this patient. Please reconsult if there are any additional questions/concerns, or if patient's
respiratory status deteriorates.
[2023-10-17] MEDS: LOVENOX 40 MG SC (17:05)
--- NOTE | 2023-10-17 21:13 | PTCARENOTE ---
Assumed care of pt at 1900. Pt is A/O x4, pleasant and cooperative with care. Able to ambulate to BR with standby assistance. SR 90s on monitor, was ST 120s-130s while OOB. SpO2 96% on RA. Physical assessment completed, see nursing shift assessment
flowsheet for full details. Pt currently telemetry level of care. Call prescott and personal belongings within reach. Bed alarm activated.
[2023-10-18] VITALS (11 sets, daily range): BP systolic 135–184; BP diastolic 69–115; PULSE 85; O2SAT 96; BMI 35.6
[2023-10-18 04:20] LABS: Hematocrit 39.2 % (39.0-52.0); Hemoglobin 13.9 g/dL (13.0-18.0); Mean Corp Hgb Conc. 35.5 g/dL (33.0-37.0); Mean Corpuscular Hgb 33.3 pg (27.0-31.0); Mean Corpuscular Volume 93.8 fL (80.0-94.0); Mean Platelet Volume 9.3 fL (7.4-10.4); Platelet Count 214 10^3/uL (130-400); Red Blood Cell Count 4.18 10^6/uL (4.70-6.10); Red Cell Dist. Width 12.5 % (11.5-14.5); White Blood Cell Count 12.8 10^3/uL (4.8-10.8)
[2023-10-18] MEDS: UNASYN IV ×4 (04:32→21:58)
[2023-10-18 04:45] LABS: Blood Urea Nitrogen 12 mg/dl (9-20); Calcium 9.1 mg/dl (8.4-10.2); Carbon Dioxide 23 mmol/L (22-30); Chloride 105 mmol/L (98-107); Estimated Creatinine Clearance 114 ml/min; Glucose 134 mg/dl (70-99); HDL Cholesterol 46 mg/dl; LDL Cholesterol, Calculated 119 mg/dl; Lactic Acid 1.7 mmol/L (0.7-2.0); Phosphorus 3.1 mg/dl (2.5-4.5); Potassium 4.5 mmol/L (3.5-5.1); Sodium 140 mmol/L (135-145); Total Cholesterol 190 mg/dl (50-199); Triglyceride 126 mg/dl (10-149); Very Low Density Lipoprotein 25 mg/dl (0-30); eGFR > 60.00
[2023-10-18 04:52] LABS: NT-proBNP 178 pg/ml
[2023-10-18] MEDS: LOW STRENGTH ASPIRIN 81 MG PO (07:37)
[2023-10-18] MEDS: THIAMINE INJECTION 200 MG IV ×3 (07:38→23:41)
[2023-10-18] MEDS: FOLVITE 1 MG PO (07:38)
[2023-10-18 08:07] LABS: Glycohemoglobin (HgbA1c) 5.7 % (4.0-5.6)
[2023-10-18] MEDS: COREG 12.5 MG PO ×2 (09:01→19:34)
--- NOTE | 2023-10-18 09:15 | PTCARENOTE ---
Received pt @ change of shift. Pt. AAOx3, denies pain. SR on monitor. SBP's elevated into 180's this AM; asymptomatic. Dr. Foster made aware- further orders received- see APR. ECHO completed @ bedside this AM. SpO2 97% on RA. +BS, abd
soft/round/obese. Stand by assisted into BR for void/AM hygiene then into chair. Instructed on how to report care concerns and call prescott placed w in reach.
--- NOTE | 2023-10-18 10:47 | CM ---
CM following re: discharge planning.
Reviewed pt's chart, met with pt.
Pt admitted to 'drinking too much', denied consistent drinking problem, stated he drinks 'from time to time'. Counseling offered and provided. Pt expressed appreciation and pt politely stated he understands his drinking problem, will resolve it on
his own and he will not need any outpatient services or any D&A treatment resources. Pt declined an offer to meet with [facility] team.
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 Pt has been notified of the danger to self and others driving under alcohol influence.
D/C plan: home no needs. Family to transport at discharge.
CM will follow with discharge plan updates as hospitalization progresses
--- NOTE | 2023-10-18 13:36 | W.PN.HOSP.TC ---
Today's Communication/Plan
-
Start Coreg and titrate
DC planning
Assessment / Plan
Assessment / Plan
Assessment:
Acute Alcohol Intoxication
Acute TME secondary to the above
Intubated for Airway Protection
- CT head negative
- s/p ICU course, extubated 10/16
- on MSAS protocol, prn Ativan, Folate/Thiamine/MV
Essential HTN with urgency
- started on Coreg, titrate dose as appropriate
Anion Gap Metabolic Acidosis (alcoholic ketoacidosis vs dehydration, lactic acidosis)
- improved with IVF
Hypothermia
- Likely secondary to acute intoxication as noted above.
- TFTs wnl
- Supportive care with Maria Luisa Hugger / blankets / etc.
- resolved
suspected aspiration pneumonia
- on Unasyn, day 2/
- monitor cultures
ASCVD
- No recent issues with chest pain, dyspnea, etc.
- Continue ASA daily when able to tolerate oral intake
- EKG without acute ischemic changes. Follow serial trop for any changes.
- Echo: normal.
DVT Prophylaxis: SCDs
Code Status: Full
Anticipated Discharge: Within 24 hours
Subjective/Interval History
-
Date of Service: October 18, 2023
no new complaints at present
Objective Data
-
Labs:
Laboratory Results
10/18/23
04:07
WBC 12.8 H
Hgb 13.9
Hct 39.2
Plt Count 214
Sodium 140
Potassium 4.5
Chloride 105
Carbon Dioxide 23
BUN 12
Creatinine 0.8
Glucose 134 H
Calcium 9.1
Vital Signs:
Vital Signs
Temp Pulse Resp BP Pulse Ox
99.1 F 83 13 155/84 97
10/18/23 12:00 10/18/23 09:32 10/18/23 06:00 10/18/23 09:01 10/18/23 09:32
I&O
10/17/23 10/18/23 10/19/23
06:59 06:59 06:59
Intake Total 467.7 / 629.1 3026.7 / 3026.7 360 / 360
Output Total 550 / 550 1200 / 1200
Balance -82.3 / 79.1 1826.7 / 1826.7 360 / 360
Physical Exam
-
General: No Apparent Distress
HEENT: Normocephalic and Atraumatic
Respiratory: Negative Wheezes
Cardiac: Regular Rhythm
GI: Soft
Musculoskeletal: No Edema
Neuro: AO x 3
Psych: Calm
Data Reviewed
-
Total Time Spent with Patient (in minutes): 41
Labs: Labs Reviewed by me
[2023-10-18] MEDS: APRESOLINE 5 MG IV (14:09)
[2023-10-18] MEDS: LOVENOX 40 MG SC (17:01)
[2023-10-19 04:08] VITALS: BP 171/86
[2023-10-19] MEDS: UNASYN IV ×2 (04:20→09:49)
[2023-10-19 04:33] VITALS: BP 168/92
[2023-10-19 06:00] VITALS: BMI 35.5
[2023-10-19 07:01] LABS: Hematocrit 37.2 % (39.0-52.0); Hemoglobin 13.1 g/dL (13.0-18.0); Mean Corp Hgb Conc. 35.2 g/dL (33.0-37.0); Mean Platelet Volume 9.9 fL (7.4-10.4); Platelet Count 221 10^3/uL (130-400); Red Blood Cell Count 4.09 10^6/uL (4.70-6.10); Red Cell Dist. Width 12.3 % (11.5-14.5); White Blood Cell Count 9.3 10^3/uL (4.8-10.8)
[2023-10-19 07:10] LABS: Blood Urea Nitrogen 15 mg/dl (9-20); Carbon Dioxide 28 mmol/L (22-30); Chloride 104 mmol/L (98-107); Estimated Creatinine Clearance 113 ml/min; Glucose 128 mg/dl (70-99); Sodium 140 mmol/L (135-145); eGFR > 60.00
[2023-10-19 07:25] VITALS: BP 184/97
[2023-10-19] MEDS: FOLVITE 1 MG PO (08:40)
[2023-10-19] MEDS: LOW STRENGTH ASPIRIN 81 MG PO (08:40)
[2023-10-19] MEDS: THIAMINE INJECTION 200 MG IV (08:41)
[2023-10-19] MEDS: COREG 25 MG PO (10:02)
[2023-10-19 10:55] VITALS: BP 160/84
--- NOTE | 2023-10-19 11:10 | W.PN.HOSP.TC ---
Today's Communication/Plan
-
dc to home
Assessment / Plan
Assessment / Plan
Assessment:
Acute Alcohol Intoxication
Acute TME secondary to the above
Intubated for Airway Protection
- CT head negative
- s/p ICU course, extubated 10/16
- on MSAS protocol, prn Ativan, Folate/Thiamine/MV
Essential HTN with urgency
- started on Coreg 25mg BID
- BP check with PCP in 1-2 weeks
Anion Gap Metabolic Acidosis (alcoholic ketoacidosis vs dehydration, lactic acidosis)
- improved with IVF
Hypothermia
- Likely secondary to acute intoxication as noted above.
- TFTs wnl
- Supportive care with Marial Uisa Hugger / blankets / etc.
- resolved
suspected aspiration pneumonia
- on Unasyn, day 3/5 - switch to Augmentin to complete 5 day course
- monitor cultures
ASCVD
- No recent issues with chest pain, dyspnea, etc.
- Continue ASA daily
- EKG without acute ischemic changes. Follow serial trop for any changes.
- Echo: normal.
DVT Prophylaxis: SCDs
Code Status: Full
More than 30 minutes spent in discharge including
Final examination of the patient
Summarizing hospital stay
Instructions for continuing care to all relevant caregivers
Preparation of discharge records, prescriptions, and referral forms
Total time spent (in minutes):41
Anticipated Discharge: Today
Subjective/Interval History
-
Date of Service: October 19, 2023
denies any new complaints at present
Objective Data
-
Labs:
Laboratory Results
10/19/23
06:08
WBC 9.3
Hgb 13.1
Hct 37.2 L
Plt Count 221
Sodium 140
Potassium 4.0
Chloride 104
Carbon Dioxide 28
BUN 15
Creatinine 0.8
Glucose 128 H
Calcium 9.0
Vital Signs:
Vital Signs
Temp Pulse Resp BP Pulse Ox
97.6 F 72 14 160/84 94
10/19/23 10:55 10/19/23 10:55 10/19/23 10:55 10/19/23 10:55 10/19/23 10:55
I&O
10/18/23 10/19/23 10/20/23
06:59 06:59 06:59
Intake Total 3026.7 / 3026.7 840 / 840
Output Total 1200 / 1200
Balance 1826.7 / 1826.7 840 / 840
Physical Exam
-
General: No Apparent Distress
HEENT: Normocephalic and Atraumatic
Respiratory: Negative Wheezes
Cardiac: Regular Rhythm and S1/S2
GI: Soft
Genito-urinary: No Costovertebral Tender
Musculoskeletal: No Edema
Neuro: AO x 3
Psych: Calm
Data Reviewed
-
Total Time Spent with Patient (in minutes): 41
Labs: Labs Reviewed by me
--- NOTE | 2023-10-19 11:13 | W.DS.TRANS ---
DC Summary - [employer]isher [employer]
-
Discharge Instructions:
Discharge Diagnosis/Procedures Acute alcohol intoxication, hypertension,
hypothermia
Diet Regular
Activity As tolerated
Instructions:
Stand-Alone Forms:
Changes to Home Medications: No
Discharge Medications:
DC Medications w/original date entered in [facility]
aspirin 81 mg chewable tablet 81 mg PO DAILY Blood Clot Prevention/Tx 10/17/23
amoxicillin 875 mg-potassium clavulanate 125 mg tablet 1 tab PO Q12H #6 tabs 10/19/23
carvedilol 25 mg tablet 25 mg PO BID #60 tabs 10/19/23
folic acid 1 mg tablet 1 mg PO DAILY #100 tabs 10/19/23
sennosides 8.6 mg-docusate sodium 50 mg tablet 1 tab PO BID #20 tabs 10/19/23
thiamine HCl (vitamin B1) 100 mg tablet 100 mg PO BID #100 tabs 10/19/23
Home Medication Changes
Pending Results: No
Total time spent discharging patient (in min): 41
[2023-10-19] MEDS: COREG PO (11:28)
--- NOTE | 2023-10-19 11:29 | CM ---
CM reviewed chart and noted dc order
Bedside meeting with pt
Home no needs- declined [facility] info
Spouse will transport
Discharge Disposition- home, no needs- spouse transport
== END 2023-10-19 11:59 | disposition home or self-care (01) | DRG 896 ==
LOC: 3 WEST ACU 01:27
PROVIDERS: Internal Medicine; Nurse Practitioner Family; ADMITTING PHYSICIAN Hospitalist; ATTENDING PHYSICIAN Internal Medicine; CONSULT PHYSICIAN Internal Medicine Critical Care Medicine; EMERGENCY PHYSICIAN Emergency Medicine; FAMILY PHYSICIAN Family Medicine
PROC: 5A1935Z Respiratory Ventilation, Less than 24 Consecutive Hours (ICD-10-PCS; 2023-10-17)
PROC: 0BH17EZ Insertion of Endotracheal Airway into Trachea, Via Natural or Artificial Opening (ICD-10-PCS; 2023-10-17)
DX: F10.129 Alcohol abuse with intoxication, unspecified (principal); G92.8 Other toxic encephalopathy; J69.0 Pneumonitis due to inhalation of food and vomit; J96.01 Acute respiratory failure with hypoxia; E87.29 Other acidosis; R57.9 Shock, unspecified; I10 Essential (primary) hypertension; I73.9 Peripheral vascular disease, unspecified; Z95.820 Peripheral vascular angioplasty status with implants and grafts; Y90.8 Blood alcohol level of 240 mg/100 ml or more; E78.1 Pure hyperglyceridemia; I25.10 Atherosclerotic heart disease of native coronary artery without angina pectoris; Z95.1 Presence of aortocoronary bypass graft; R32 Unspecified urinary incontinence; R68.0 Hypothermia, not associated with low environmental temperature; S00.31XA Abrasion of nose, initial encounter; W19.XXXA Unspecified fall, initial encounter; Z85.828 Personal history of other malignant neoplasm of skin; Z79.82 Long term (current) use of aspirin; Z87.891 Personal history of nicotine dependence
CPT/HCPCS: 31500; 36600; 70450; 71045; 80048; 80053; 80061; 80306; 81003; 81015; 82010; 82077; 82248; 82805; 83036; 83605; 83735; 83880; 84100; 84145; 84443; 84478; 84484; 85025; 85027; 85610; 85730; 87040; 87086; 87811; 93005; 93306; 94002; 96361; 96374; 96375; 97162; 99291